=== PATIENT | male | born 1995 | race Caucasian/White ===

== ENCOUNTER 2017-11-18 23:31 | Emergency (ER) | payer OTHER ==
--- NOTE | 2017-11-18 23:34 | ER Report ---
History and Physical Time Seen By MD: 23:33 HPI/ROS CHIEF COMPLAINT: Right hand laceration HISTORY OF PRESENT ILLNESS: 21-year-old male presents ambulatory to the ER. He' s a laceration over his right long finger MCP. Patient was working with a utility knife cutting a box open when he slipped slashing into his knuckle. Patient industries full range of motion. Does not appear be a tendon laceration. He states his last tetanus shots up-to-date. Patient notes 11/01 dull pain at the site. He notes no numbness in his long finger. Patient is right-hand dominant Allergies: Coded Allergies: No Known Drug Allergies (Unverified , 11/18/17) Home Meds No Active Prescriptions or Reported Meds Reviewed Nurses Notes: Yes Old Medical Records Reviewed: Yes Constitutional Vital Sign - Last 24 Hours 11/18/17 23:39 Pulse 105 Resp 16 B/P (MAP) 156/103 Pulse Ox 100 O2 Delivery Room Air Physical Exam General appearance: Alert no distress. Respiratory: Chest is non tender, lungs are clear to auscultation. Cardiac: Regular rate and rhythm Extremities: Examination of the right upper extremity, the hand is neurovascularly intact. There is a diagonal 2.0 cm laceration just distal MCP joint. Patient's extensor tendons are intact on the right long finger. All digits are neurovascularly intact. DIFFERENTIAL DIAGNOSIS: After history and physical exam differential diagnosis was considered for finger laceration, joint penetration, tendon laceration Medical Decision Making ED Course/Re-evaluation ED Course Patient was minute to an examination room and H&P was done. The dental diagnoses was considered. Procedure: Laceration repair. Verbal consent was obtained from the patient. The 2.0 cm transverse laceration on the just distal to the 3rd MCP was anesthetized in the usual fashion. The wound was scrubbed, draped and explored to its base with a gloved finger. The wound extended down deep over the tendons. Finger was put through its range of motion. No tendon laceration was noted There were no deep structures involved. The wound was repaired with 5-0 Prolene 6 sutures. The wound repair was simple. The procedure was performed by myself. Patient was placed in a splint to prevent flexion of the skin at that joint. He is advised to wear the splint for 5 days. He is advised to return for suture removal in 14 days. Decision to Disposition Date: Nov 19, 2017 Decision to Disposition Time: 00:23 Depart Departure Latest Vital Signs Vital Signs Date Time Temp Pulse Resp B/P (MAP) Pulse Ox O2 Delivery O2 Flow Rate FiO2 11/18/17 23:39 105 16 156/103 100 Room Air Impression: Primary Impression: Hand laceration Condition: Improved Disposition: HOME OR SELF-CARE New Scripts No Active Prescriptions or Reported Meds Additional Instructions: The computer system was down. Patient was given paper instructions for his aftercare. He is advised to wear the splint for 5 days and have suture removal in 14 days. He is cautioned return within 2 days for any signs of infection. Problem Qualifiers Primary Impression: Hand laceration Encounter type: initial encounter Foreign body presence: without foreign body Laterality: right Qualified Codes: S61.411A - Laceration without foreign body of right hand, initial encounter LING MCADASM DO Nov 18, 2017 23:34
[2017-11-18 23:39] VITALS: BP 156/103
== END 2017-11-19 00:45 | disposition home or self-care (01) ==
LOC: ER 23:36
DX: S61.411A Laceration without foreign body of right hand, initial encounter (principal); W26.0XXA Contact with knife, initial encounter
CPT/HCPCS: 99282